=== PATIENT | female | born 1995 | race African-American/Black ===

== ENCOUNTER 2020-09-05 07:37 | Emergency (ER) | payer OTHER ==
[~2020-09-05 07:37] MED LIST: DICLOFENAC SODI75 MG PO; KETOROLAC TROME10 MG PO; MEDROL 4MG DOSEP4 MG PO; NAPROXEN500 MG PO; NORCO 5-325 TA1 EACH PO
== END 2020-09-05 09:17 | disposition left against medical advice (07) ==
LOC: FER 07:37
DX: R10.9 Unspecified abdominal pain (principal); Z53.8 Procedure and treatment not carried out for other reasons

== ENCOUNTER 2020-10-25 05:40 | Emergency (ER) | payer OTHER ==
[2020-10-25] MEDS ORDERED: KETOROLAC TROME10 MG PO (06:53)
[2020-10-25] MEDS ORDERED: PERCOCET 7.5/321 TAB PO (06:53)
== END 2020-10-25 07:00 | disposition home or self-care (01) ==
LOC: FER 05:40
DX: N94.6 Dysmenorrhea, unspecified (principal); F17.210 Nicotine dependence, cigarettes, uncomplicated
CPT/HCPCS: 99284; J1885

== ENCOUNTER 2020-12-27 09:14 | Emergency (ER) | payer SELFPAY ==
[~2020-12-27 09:14] MED LIST changes: +PERCOCET 7.5/321 TAB PO
[2020-12-27 09:57] LABS: BASOPHIL 0.2 % (0-2); EOSINOPHIL 1.4 % (0-5); HGB 14.4 g/dl (12.5-16.0); LYMPHOCYTE 16.5 % (15-48); MCH 29.9 pg (25.0-31.0); MCHC 34.3 g/dL (32.0-36.0); MCV 87.3 fL (78.0-100.0); MONOCYTE 6.5 % (0-12); MPV 10.7 fL (6.0-9.5); NRBC 0; PLT 181 K/uL (150-400); RBC 4.81 M/uL (4.20-5.40); RDW 13.2 % (11.5-14.0); WBC 12.8 K/uL (4.0-10.5)
[2020-12-27 10:10] LABS: BILIRUBIN NEGATIVE (NEGATIVE); BLOOD TRACE-LYSED Ery/uL (NEGATIVE); CLARITY CLEAR (CLEAR); COLOR YELLOW (YELLOW); GLUCOSE (U) NORMAL (NORMAL); LEUKOCYTES NEGATIVE Leu/uL (NEGATIVE); NITRITE NEGATIVE (NEGATIVE); PROTEIN NEGATIVE (NEGATIVE); UROBILINOGEN 0.2 mg/dL (0.2-1.0)
[2020-12-27 10:18] LABS: BACTERIA TRACE; URINARY WBC RARE
[2020-12-27 10:25] LABS: ALBUMIN 3.9 g/dL (3.4-5.0); BILIRUBIN - TOTAL 0.5 mg/dL (0.2-1.0); CREATININE 0.69 mg/dL (0.51-0.95); GLOBULIN (CALCULATION) 3.7 g/dL; TOTAL PROTEIN 7.6 g/dL (6.4-8.2)
[2020-12-27] MEDS ORDERED: ONDANSETRON ODT4 MG SL (12:21)
[2020-12-27] MEDS ORDERED: PEPCID AC20 MG PO (12:21)
[2020-12-27] MEDS ORDERED: CARAFATE1 GM PO (12:21)
[2020-12-27] MEDS ORDERED: BENTYL10 MG PO (12:21)
== END 2020-12-27 12:30 | disposition home or self-care (01) ==
LOC: FER 09:14
PROVIDERS: Emergency Medicine Emergency Medical Services
DX: R10.13 Epigastric pain (principal); R19.7 Diarrhea, unspecified; R11.0 Nausea; F17.200 Nicotine dependence, unspecified, uncomplicated
CPT/HCPCS: 36415; 71045; 80053; 81001; 83690; 85025; 87339; J1885; J2405; J7030

== ENCOUNTER 2021-01-25 09:10 | Emergency (ER) | payer SELFPAY ==
[~2021-01-25 09:10] MED LIST changes: +BENTYL10 MG PO; +CARAFATE1 GM PO; +ONDANSETRON ODT4 MG SL; +PEPCID AC20 MG PO
[2021-01-25 11:09] LABS: BASOPHIL 0.5 % (0-2); EOSINOPHIL 1.3 % (0-5); HCT 38.6 % (37.0-47.0); HGB 12.8 g/dl (12.5-16.0); LYMPHOCYTE 31.4 % (15-48); MCH 29.4 pg (25.0-31.0); MCHC 33.2 g/dL (32.0-36.0); MCV 88.7 fL (78.0-100.0); MONOCYTE 6.5 % (0-12); MPV 10.9 fL (6.0-9.5); NEUTROPHIL 60.1 % (41-80); NRBC 0; PLT 166 K/uL (150-400); RBC 4.35 M/uL (4.20-5.40); WBC 9.5 K/uL (4.0-10.5)
[2021-01-25 11:13] LABS: BILIRUBIN NEGATIVE (NEGATIVE); BLOOD 3+ Ery/uL (NEGATIVE); CLARITY CLEAR (CLEAR); COLOR YELLOW (YELLOW); GLUCOSE (U) NORMAL (NORMAL); LEUKOCYTES NEGATIVE Leu/uL (NEGATIVE); NITRITE NEGATIVE (NEGATIVE); PROTEIN NEGATIVE (NEGATIVE); UROBILINOGEN 0.2 mg/dL (0.2-1.0)
[2021-01-25 11:23] LABS: ALBUMIN 4.3 g/dL (3.4-5.0); BUN/CREAT RATIO (CALC) 14.1 RATIO; CREATININE 0.64 mg/dL (0.51-0.95); GLOBULIN (CALCULATION) 3.2 g/dL; POTASSIUM 4.3 mmol/L (3.5-5.1); TOTAL PROTEIN 7.5 g/dL (6.4-8.2)
[2021-01-25 11:48] LABS: BACTERIA TRACE; URINARY WBC RARE
[2021-01-25 12:30] LABS: CORONAVIRUS 2019 SARS-COV-2 NEGATIVE (NEGATIVE); INFLUENZA A NAA NEGATIVE (NEGATIVE)
[2021-01-25] MEDS ORDERED: IMITREX50 MG PO (12:52)
[2021-01-25] MEDS ORDERED: ONDANSETRON ODT4 MG PO (12:52)
== END 2021-01-25 13:36 | disposition home or self-care (01) ==
LOC: FER 09:10
PROVIDERS: Emergency Medicine
DX: G43.909 Migraine, unspecified, not intractable, without status migrainosus (principal)
CPT/HCPCS: 36415; 80053; 81001; 85025; 99284; J1885; U0002

== ENCOUNTER 2021-01-27 05:50 | Emergency (ER) | payer SELFPAY ==
[~2021-01-27 05:50] MED LIST changes: +IMITREX50 MG PO; +ONDANSETRON ODT4 MG PO
[2021-01-27] MEDS ORDERED: TRAMADOL HCL50 MG PO ×2 (06:17→06:34)
== END 2021-01-27 06:55 | disposition home or self-care (01) ==
LOC: FER 05:50
DX: N94.6 Dysmenorrhea, unspecified (principal); F17.210 Nicotine dependence, cigarettes, uncomplicated
CPT/HCPCS: 99284

== ENCOUNTER 2021-04-08 05:41 | Emergency (ER) | payer SELFPAY ==
[~2021-04-08 05:41] MED LIST changes: +TRAMADOL HCL50 MG PO
[2021-04-08] MEDS ORDERED: KETOROLAC TROME10 MG PO (06:01)
[2021-04-08] MEDS ORDERED: NORCO 5-325 TA1 EACH PO (06:01)
== END 2021-04-08 06:20 | disposition home or self-care (01) ==
LOC: FER 05:41
DX: N94.6 Dysmenorrhea, unspecified (principal)
CPT/HCPCS: 96372; J1170; J1885

== ENCOUNTER 2021-05-03 18:40 | Emergency (ER) | payer SELFPAY ==
[2021-05-03 19:32] LABS: BILIRUBIN NEGATIVE (NEGATIVE); BLOOD 3+ Ery/uL (NEGATIVE); COLOR YELLOW (YELLOW); GLUCOSE (U) NORMAL (NORMAL); LEUKOCYTES NEGATIVE Leu/uL (NEGATIVE); NITRITE NEGATIVE (NEGATIVE); PROTEIN 1+ mg/dL (NEGATIVE); SPECIFIC GRAVITY >=1.030 (1.001-1.030)
[2021-05-03 19:35] LABS: CLARITY HAZY (CLEAR)
[2021-05-03 20:00] LABS: URINARY WBC RARE
[2021-05-03 20:01] LABS: BACTERIA TRACE; MUCOUS TRACE; URINARY RBC TNTC
[2021-05-03] MEDS ORDERED: IBUPROFEN800 MG PO (20:16)
== END 2021-05-03 20:27 | disposition home or self-care (01) ==
LOC: FER 18:40
PROVIDERS: Emergency Medicine Emergency Medical Services
DX: N94.6 Dysmenorrhea, unspecified (principal); F17.210 Nicotine dependence, cigarettes, uncomplicated
CPT/HCPCS: 81001; 96372; 99284; J1170; J1885

== ENCOUNTER 2021-06-19 17:53 | Emergency (ER) | payer SELFPAY ==
[~2021-06-19 17:53] MED LIST changes: +IBUPROFEN800 MG PO
[2021-06-19 20:00] LABS: INFLUENZA A NAA NEGATIVE (NEGATIVE)
[2021-06-19 20:19] LABS: CORONAVIRUS 2019 SARS-COV-2 POSITIVE (NEGATIVE)
[2021-06-22] MEDS ORDERED: NAPROXEN500 MG PO (06:13)
== END 2021-06-19 19:15 | disposition left against medical advice (07) ==
LOC: FER 17:53
PROVIDERS: Internal Medicine
DX: U07.1 COVID-19 (principal); Z53.8 Procedure and treatment not carried out for other reasons
CPT/HCPCS: 99281; U0002

== ENCOUNTER 2021-08-11 14:35 | Emergency (ER) | payer SELFPAY ==
[2021-08-11] MEDS ORDERED: MOTRIN600 MG PO (16:34)
[2021-08-11 17:06] LABS: BILIRUBIN NEGATIVE (NEGATIVE); BLOOD 3+ Ery/uL (NEGATIVE); CLARITY CLEAR (CLEAR); COLOR YELLOW (YELLOW); GLUCOSE (U) NORMAL (NORMAL); LEUKOCYTES NEGATIVE Leu/uL (NEGATIVE); NITRITE NEGATIVE (NEGATIVE); PROTEIN TRACE (LOW) mg/dL (NEGATIVE); UROBILINOGEN 0.2 mg/dL (0.2-1.0); pH 6.5 (5.0-9.0)
[2021-08-11 17:36] LABS: MUCOUS MODERATE; URINARY RBC 20-50
== END 2021-08-11 18:03 | disposition home or self-care (01) ==
LOC: FER 14:35
PROVIDERS: Physician Assistant
DX: N94.6 Dysmenorrhea, unspecified (principal); F17.210 Nicotine dependence, cigarettes, uncomplicated
CPT/HCPCS: 81001; 87088; 99284; J1885

== ENCOUNTER 2022-02-02 23:21 | Emergency (ER) | payer SELFPAY ==
[~2022-02-02 23:21] MED LIST changes: +MOTRIN600 MG PO
[2022-02-03 00:53] LABS: BILIRUBIN 1+ mg/dL (NEGATIVE); BLOOD 3+ Ery/uL (NEGATIVE); CLARITY CLEAR (CLEAR); COLOR YELLOW (YELLOW); GLUCOSE (U) NORMAL (NORMAL); LEUKOCYTES TRACE Leu/uL (NEGATIVE); NITRITE NEGATIVE (NEGATIVE); PROTEIN 1+ mg/dL (NEGATIVE); SPECIFIC GRAVITY 1.025 (1.001-1.030)
[2022-02-03 01:03] LABS: BACTERIA TRACE; URINARY RBC 20-50; URINARY WBC RARE
[2022-02-03 01:04] LABS: SQUAMOUS EPITHELIAL CELLS RARE
== END 2022-02-03 02:30 | disposition home or self-care (01) ==
LOC: FER 23:21
PROVIDERS: Emergency Medicine
DX: N94.6 Dysmenorrhea, unspecified (principal); N80.9 Endometriosis, unspecified; F17.200 Nicotine dependence, unspecified, uncomplicated
CPT/HCPCS: 81001; 96372; J1170; J1885